=== PATIENT | female | born 1950 | race Caucasian/White ===

== ENCOUNTER 2024-08-24 21:28 | Emergency (ER) | payer MEDICARE ==
[~2024-08-24] VITALS: Ht 154.9 cm; Wt 53.5 kg
[2024-08-24] MEDS ORDERED: TDAP [DIPH/PERTUSSIS/TET] 0.5 ML VIAL IM ONE (22:44)
[2024-08-24] MEDS: TDAP [DIPH/PERTUSSIS/TET] 0.5 ML VIAL IM ONE (22:47)
[2024-08-25 00:35] VITALS: BP 144/74; TEMP 98.5; O2SAT 99
== END 2024-08-25 00:35 | disposition home or self-care (01) ==
LOC: ER 21:28
DX: S01.81XA Laceration without foreign body of other part of head, initial encounter (principal); E78.5 Hyperlipidemia, unspecified; W18.09XA Striking against other object with subsequent fall, initial encounter; Y93.E8 Activity, other personal hygiene; Y92.099 Unspecified place in other non-institutional residence as the place of occurrence of the external cause; Y99.8 Other external cause status
CPT/HCPCS: 70450-TC; 70486-TC; 90715